=== PATIENT | female | born 1990 | race Caucasian/White ===

== ENCOUNTER 2017-08-15 20:25 | Inpatient (IN) ==
[2017-08-15] MEDS ORDERED: IOPAMIDOL 100 ML BOTTLE IV ONE (20:26)
[2017-08-15] MEDS: HYDROmorphone 2 MG/ML SYRINGE IV PRN (21:02)
[2017-08-15] MEDS ORDERED: HYDROmorphone 2 MG/ML SYRINGE IV SCH (21:30)
[2017-08-15 21:35] LABS: Basophils # (Auto) 0.1 K/mcL (0.0-0.3); Basophils % (Auto) 0.5 % (0.0-2.0); Eosinophils # (Auto) 0.2 K/mcL (0.0-0.7); Eosinophils % (Auto) 1.3 % (0.0-7.0); Granulocytes % (Auto) 79.4 % (38.0-78.0); Lymphocytes % (Auto) 13.6 % (15.5-49.0); Mean Cell Volume 94.8 fL (80.0-100.0); Mean Corpuscular HGB Conc 35.2 g/dL (31.0-36.0); Mean Corpuscular Hemoglobin 33.4 pg (26.0-34.0); Monocytes # (Auto) 0.7 K/mcL (0.1-0.9); Monocytes % (Auto) 5.2 % (1.0-12.0); Platelet Count 220 K/mcL (140-440); RBC 4.41 M/mcL (4.00-5.20); Red Cell Distribution Width 13.2 % (11.5-14.5)
[2017-08-15] MEDS ORDERED: cefOXitin 2 GM in DEXTROSE 5% IN WATER 50 ML IV ONE (21:52)
[2017-08-15 21:53] LABS: ALT/SGPT 45 U/l (0-40); Albumin 4.2 gm/dL (3.2-5.2); Albumin/Globulin Ratio 1.3 (1.0-2.3); Alkaline Phosphatase 66 U/L (39-117); Blood Urea Nitrogen 9 mg/dl (6-20)
[2017-08-15] MEDS ORDERED: 0.9 % SODIUM CHLORIDE 1,000 ML IV ONE (21:57)
[2017-08-15] MEDS ORDERED: HYDROmorphone 2 MG/ML SYRINGE ONE (22:45)
[2017-08-15] MEDS ORDERED: HYDROmorphone 2 MG/ML SYRINGE IV ONE (22:46)
[2017-08-15] MEDS ORDERED: ACETAMINOPHEN 325 MG TABLET PO ONE ×2 (22:50)
[2017-08-15] MEDS ORDERED: PIPERACILLIN SODIUM/TAZOBACTAM 3.375 GM in DEXTROSE 5% IN WATER 50 ML IV ONE (23:15)
[2017-08-15] MEDS ORDERED: VANCOMYCIN 1,500 MG in 0.9 % SODIUM CHLORIDE 500 ML IV ONE (23:15)
[2017-08-15] MEDS ORDERED: KETOROLAC 30 MG/ML VIAL IV ONE (23:15)
[2017-08-15] MEDS ORDERED: DEXAMETHASONE 10 MG/ML VIAL ONE (23:33)
[2017-08-15] MEDS ORDERED: VANCOMYCIN 500 MG VIAL ONE (23:33)
[2017-08-15] MEDS ORDERED: PIPERACILLIN SODIUM/TAZOBACTAM 3.375 GM VIAL IV ONE (23:33)
[2017-08-15] MEDS ORDERED: VANCOMYCIN 1 GM VIAL ONE (23:34)
[2017-08-16] MEDS ORDERED: KETOROLAC 15 MG/ML VIAL ONE ×2 (00:42→05:54)
[2017-08-16] MEDS ORDERED: ONDANSETRON 4 MG/2 ML VIAL IV PRN (00:48)
[2017-08-16] MEDS ORDERED: VANCOMYCIN PER PHARMACY IV SCH (00:48)
[2017-08-16] MEDS ORDERED: KETOROLAC 30 MG/ML VIAL IV PRN (00:48)
[2017-08-16] MEDS ORDERED: ACETAMINOPHEN 325 MG TABLET PO PRN (00:48)
[2017-08-16] MEDS ORDERED: HYDROmorphone 2 MG/ML SYRINGE IV PRN (00:48)
[2017-08-16] MEDS ORDERED: NALOXONE HCL 0.4 MG/ML VIAL IV PRN (00:48)
[2017-08-16] MEDS ORDERED: NICOTINE 21 MG PATCH ONE (00:57)
[2017-08-16] MEDS ORDERED: CITALOPRAM 20 MG TABLET PO ONE (01:30)
[2017-08-16] MEDS ORDERED: DIVALPROEX SODIUM 250 MG TAB.ER.24H PO ONE (01:30)
[2017-08-16] MEDS ORDERED: clonazePAM 1 MG TABLET ONE (01:35)
[2017-08-16] MEDS ORDERED: HYDROmorphone 2 MG/ML SYRINGE ONE ×2 (03:12→03:17)
[2017-08-16] MEDS ORDERED: PIPERACILLIN SODIUM/TAZOBACTAM 3.375 GM VIAL IV ONE (05:57)
[2017-08-16] MEDS: HYDROmorphone 2 MG/ML SYRINGE IV PRN (06:52)
[2017-08-16] MEDS ORDERED: DEXAMETHASONE 10 MG/ML VIAL ONE (07:37)
[2017-08-16] MEDS ORDERED: HYDROcodone/APAP 10/325MG TABLET PO ONE (07:37)
[2017-08-16] MEDS ORDERED: ARIPIPRAZOLE 5 MG TABLET PO ONE (08:00)
--- NOTE | 2017-08-16 08:11 | Internal Med History&Physical ---
Medical - H&P: HPI Patient information: Note initiated : 08/16/17 at 12:09 am Service Date, if different from initiated Date: [] Patient: Sri Bang 27 y/o F admitted on for dental. Chief Complaint: [] History of present illness: Ms. Bang is a 27 year old Female presented to the ER today with complaints of pain in the left jaw associated with swelling. The patient has a chr bad (broken) tooth in the left lower jaw which bothers her intermittently, this time around the pain started 2 days ago in the left lower jaw and progressively got worse. This AM the patient had some swelling on the left side of the face and therefore presented to the ER, she was given oral antibiotics. The swelling got worse and she came back in again this PM. The patient notes that the pain is in the left lower jaw, throbbing, severe, constant, worse with eating and movement, better with pain meds, non radiating. Associated with swelling in the left side of the face. Subjective sesnation of fever and chills and malaise. She admits to having some nausea but no vomiting. No other issues. In the ER her wbc was elevated, CT of the neck done showing. cellulitis of the left face and neck, likely odontogenic in origin. She was given cefoxitin and admitted to the hospital for further management. All systems: reviewed and no additional remarkable complaints except as stated ( as per HPI) Medical - H&P: PMH Medical history: Medical History Pharyngitis (Acute) Back pain (Acute) Lumbar radiculopathy (Acute) Ovarian cyst (Acute) Hepatomegaly (Acute) Ovarian cyst (Acute) Abscess of skin or subcutaneous tissue (Acute) Abscess of axilla, left (Acute) Cigarette smoker (Acute) Morbid obesity (Acute) Dental abscess (Acute) epilespsy anxiety depressin ptsd night tremors Surgical history: s/o cholecystectomy Pertinent family history: Father DM, heart issues mother HTN Social history: lives with smoker, 1ppd, x 15 yrs denies etoh, thc or other drugs. Medical - H&P: Meds Home Medications Medication Instructions Recorded Confirmed Type Citalopram [Celexa] 20 mg PO HS 06/13/15 08/15/17 History clonazePAM [Clonazepam] 1 mg PO TID 06/13/15 08/15/17 History Aripiprazole [Abilify] 20 mg PO DAILY 04/28/17 08/15/17 History Divalproex Sodium [Depakote ER] 1,000 mg PO HS 04/28/17 08/15/17 History Prazosin [Minipress] 2 mg PO HS 04/28/17 08/15/17 History HYDROcodone/ACETAMINOPHEN 2 each PO Q4-6HP PRN 08/05/17 08/15/17 History [Hydrocodon-Acetaminophn 10-325] Clindamycin HCl [Cleocin] 300 mg PO TID #30 cap 08/15/17 Rx Allergies Allergy/AdvReac Type Severity Reaction Status Date / Time morphine [MORPHINE] Allergy Intermediate HIVES, Verified 08/15/17 07:54 SWELLING codeine [CODEINE] Allergy Mild HIVES Verified 08/15/17 07:54 lamotrigine [From LAMICTAL] Allergy Unknown STOP Verified 08/15/17 07:54 BREATHING Medical - H&P: Exam - Constitutional Vitals: Temp Pulse Resp BP Pulse Ox 98.1 F 118 H 19 118/75 96 08/15/17 20:25 08/15/17 20:25 08/15/17 20:25 08/15/17 20:25 08/15/17 20:25 Exam: GENERAL: The patient is a well-developed, well-nourished in no apparent distress. Is alert and oriented x3. morbidly obese VITAL SIGNS: Reviewed and as noted elsewhere. HEENT: Head is normocephalic and atraumatic. Extraocular muscles are intact. Pupils are equal, round, and reactive to light. Nares appeared normal. Mouth: Left jaw swollen 1st molar broken, pus noted at the base of the tooth. some fluctuation to deep palpation. left side of the face as well as the neck swollen. No stridor noted. tongue normal, oropharanyx normal. NECK: Normal to inspection, Supple, No lymphadenopathy or thyromegaly. LUNGS: Air entry equal on both sides, no wheezing, crackles or rhonchi noted. No accessory muscles of respiration HEART: Regular rate and rhythm normal, S1 and S2 heard, no Gallop, S3 or Rub Noted, No Gross murmur heard. ABDOMEN: Soft, nontender, and nondistended. Positive bowel sounds. No hepatosplenomegaly was noted. EXTREMITIES: No cyanosis, clubbing, rash, lesions or edema. NEUROLOGIC: Cranial nerves II through XII are grossly intact. Motor and Sensory System Grossly Intact PSYCHIATRIC: Normal affect, Normal Mood. Appropriate Behavior. SKIN: No ulceration or wounds noted, No jaundice, No rash noted. Medical - H&P: Reslt - Labs CBC & Chem 7: 08/15/17 20:52 08/15/17 20:52 Labs: Short CBC 08/15/17 Range/Units 20:52 WBC 14.4 H (4.5-11.0) K/mcL Hgb 14.7 (12.0-15.0) g/dL Hct 41.8 (36.0-48.0) % Plt Count 220 (140-440) K/mcL BMP 08/15/17 20:52 Sodium 138 Potassium 4.2 Chloride 98 Carbon Dioxide 26 BUN 9 Creatinine 0.7 Glucose 181 H Calcium 9.3 Liver Function 08/15/17 Range/Units 20:52 Total Bilirubin 0.3 (0.0-1.0) mg/dL AST 46 H (0-37) U/l ALT 45 H (0-40) U/l Alkaline Phosphatase 66 (39-117) U/L Albumin 4.2 (3.2-5.2) gm/dL Medical - H&P: A/P - Narrative A/P Narrative: A/P Neck Cellutlitis Sepsis Periodontal Abscess Morbid obesity Depression Anxiety Chr pain PTSD Seizure disorder tobacco abuse. Plan Admit to tele, monitor resp status closely IV dexa 10mg x 1, started on vanco and zosyn, (unasyn not available) IVF fluids d5, 0.45ns @75 IV ketorolac and IV dilaudid for pain management. IVF, NPO OMS consult in AM to see if this abscess needs to be drained. seizure precautions resume home meds once verified check a1c given elevated glucose smoking cessation education and nicotine replacement dvt enoxaparin Full code NPO
--- NOTE | 2017-08-16 08:11 | Emergency Department Note ---
Dental HPI - General Chief complaint: Dental/Oral Stated complaint: dental Time Seen by Provider: 08/15/17 20:30 Source: patient Mode of arrival: ambulatory Limitations: no limitations - History of Present Illness HPI Narrative: The patient is a 27-year-old female who presents today for reevaluation of her left jaw pain and dental infection. She was seen here earlier today by Dr. rosas who prescribed clindamycin. The patient reports that she took 2 doses thus far and was planning on taking the third dose when she went to bed tonight. However she took a nap this afternoon,woke up and noted incredible worsening of her left sided mouth and jaw swelling. Feels like it's extending into the left neck now. Also feels like she is having some difficulty breathing. Denies any headache at home today. Location: Tooth # (19) Onset (ago): day(s) Duration: constant Severity scale (1-10): 10 - Related Data Home Medications Medication Instructions Recorded Confirmed Citalopram [Celexa] 40 mg PO HS 06/13/15 08/16/17 clonazePAM [Clonazepam] 1 mg PO TID 06/13/15 08/16/17 Aripiprazole [Abilify] 10 mg PO QHS 04/28/17 08/16/17 Divalproex Sodium [Depakote ER] 1,000 mg PO HS 04/28/17 08/16/17 Prazosin [Minipress] 1 mg PO HS 04/28/17 08/16/17 HYDROcodone/ACETAMINOPHEN 2 each PO Q4-6HP PRN 08/05/17 08/16/17 [Hydrocodon-Acetaminophn 10-325] Ondansetron HCl [Zofran] 4 mg PO Q4-6H PRN 08/16/17 08/16/17 Previous Rx's Medication Instructions Recorded Clindamycin HCl [Cleocin] 300 mg PO TID #30 cap 08/15/17 Allergies Allergy/AdvReac Type Severity Reaction Status Date / Time morphine [MORPHINE] Allergy Intermediate HIVES, Verified 08/15/17 07:54 SWELLING codeine [CODEINE] Allergy Mild HIVES Verified 08/15/17 07:54 lamotrigine [From LAMICTAL] Allergy Unknown STOP Verified 08/15/17 07:54 BREATHING Review of Systems All systems ED: reviewed and negative except as stated. Past Medical History - Past Medical History Attestation: Yes: The following information was validated with the patient. Medical history: Reports: arthritis, asthma, seizures, other (chronic low back pain, chronic narcotics). Denies: diabetes Surgical history ED: Reports: non-contributory Psychiatric history: Reports: anxiety, depression, PTSD ART THERAPY SPECIALIST history: Reports: other (ovarian cysts) - Social History smoking status: Current every day smoker Alcohol use: Reports: None (denies) Drug use: Reports: none (denies) Physical Exam - General Limitations: no limitations General appearance: alert, in distress (appears to be uncomfortable) - Head Head exam: other (visible swelling to the left lower jaw and neck region - distortion pushes her mouth to the right, pain on palpation of the left submandibular lymph nodes but no warmth to the touch) - Eye Eye exam: Present: normal appearance - Chest Chest inspection: Present: normal inspection, symmetric chest wall rise - Respiratory Respiratory exam: Present: normal lung sounds bilaterally - Cardiovascular Cardiovascular exam: Present: regular rate, normal rhythm - Abdominal Exam Abdominal exam: Present: soft, normal bowel sounds - Neurological Exam Neurological exam: Present: alert, oriented X3 - Psychiatric Psychiatric exam: Present: normal affect, normal mood - Skin Skin exam: Present: warm, dry Course Course Narrative: This is a patient who earlier today had mild swelling of her left lower jaw. It has rapidly progressed despite outpatient antibiotic therapy. We will draw blood cultures, blood work, CT soft tissue neck and pain IV fluids with IV antibiotics. Question of abscess versus cellulitis. - Reevaluation(s) Reevaluation #1: CT returned showing facial cellulitis without sign of abscess. IV cefoxatin was started for anaerobic coverage. Blood work returned showing a white blood cell count of 14.2. Called hospitalist who graciously agreed to admit the patient for sepsis with facial cellulitis. Vital Signs Temperature 98.1 F 08/15/17 20:25 Pulse Rate 118 H 08/15/17 20:25 Respiratory Rate 19 08/15/17 20:25 Blood Pressure 118/75 08/15/17 20:25 Pulse Oximetry (%) 96 08/15/17 20:25 Temperature 98.0 F 08/16/17 01:07 Pulse Rate 110 H 08/16/17 01:07 Respiratory Rate 24 H 08/16/17 01:07 Blood Pressure 118/75 08/16/17 01:07 Pulse Oximetry (%) 96 08/16/17 02:33 Dental/Oral - MDM Narrative Medical decision making narrative: Acute worsening of left sided dental infection progressing to left neck cellulitis causing sepsis. Patient will be admitted to the hospital service and be treated with IV antibiotics, pain control and dexamethasone. - Lab Data Lab results reviewed: Yes I reviewed the patient's lab results. Result diagrams: 08/15/17 20:52 08/15/17 20:52 Lab Results 08/15/17 08/15/17 08/15/17 Range/Units 20:52 20:52 20:52 WBC 14.4 H (4.5-11.0) K/mcL RBC 4.41 (4.00-5.20) M/mcL Hgb 14.7 (12.0-15.0) g/dL Hct 41.8 (36.0-48.0) % MCV 94.8 (80.0-100.0) fL MCH 33.4 (26.0-34.0) pg MCHC 35.2 (31.0-36.0) g/dL RDW 13.2 (11.5-14.5) % Plt Count 220 (140-440) K/mcL MPV 9.5 (7.4-10.4) fL Gran % 79.4 H (38.0-78.0) % Lymph % (Auto) 13.6 L (15.5-49.0) % Elmore % (Auto) 5.2 (1.0-12.0) % Eos % (Auto) 1.3 (0.0-7.0) % Baso % (Auto) 0.5 (0.0-2.0) % Gran # 11.4 H (1.8-8.0) K/mcL Lymph # (Auto) 2.0 (1.5-4.8) K/mcL Elmore # (Auto) 0.7 (0.1-0.9) K/mcL Eos # (Auto) 0.2 (0.0-0.7) K/mcL Baso # (Auto) 0.1 (0.0-0.3) K/mcL VBG Lactic Acid 1.4 (0.5-2.2) mmol/L Sodium 138 (133-145) mmol/L Potassium 4.2 (3.3-5.1) mmol/L Chloride 98 (96-108) mmol/L Carbon Dioxide 26 (22-30) mmol/L Anion Gap 14.0 (8-16) BUN 9 (6-20) mg/dl Creatinine 0.7 (0.6-1.1) mg/dl GFR Calculation 119 Glucose 181 H (70-105) mg/dL Calcium 9.3 (8.6-10.4) mg/dl Total Bilirubin 0.3 (0.0-1.0) mg/dL AST 46 H (0-37) U/l ALT 45 H (0-40) U/l Alkaline Phosphatase 66 (39-117) U/L Total Protein 7.5 (5.9-8.4) gm/dL Albumin 4.2 (3.2-5.2) gm/dL Globulin 3.3 (2.2-3.7) gm/dL Albumin/Globulin Ratio 1.3 (1.0-2.3) Disposition Pt seen by SEXTON HELPER/PA only: No Clinical Impression: Cellulitis Disposition: Xfer As Inpt ([facility]) Condition: Good
[2017-08-16] MEDS: DEXTROSE 5%-1/2NS 1,000 ML IV SCH ×3 (09:15→22:11)
[2017-08-16] MEDS: NICOTINE 21 MG PATCH TOPICAL SCH ×2 (09:15→10:14)
[2017-08-16] MEDS: clonazePAM 1 MG TABLET PO SCH ×3 (09:16→19:16)
[2017-08-16] MEDS: ENOXAPARIN 40 MG/0.4 ML SYRINGE SQ SCH (09:20)
[2017-08-16 09:30] LABS: ALT/SGPT 41 U/l (0-40); Albumin 4.1 gm/dL (3.2-5.2); Albumin/Globulin Ratio 1.3 (1.0-2.3); Alkaline Phosphatase 70 U/L (39-117); Bilirubin,Direct < 0.2 mg/dL (0.0-0.3); Blood Urea Nitrogen 8 mg/dl (6-20); Gamma Glutamyl Transpeptidase 43 U/L (5-36); Magnesium 2.1 mg/dL (1.6-2.5); Mean Cell Volume 97.7 fL (80.0-100.0); Mean Corpuscular HGB Conc 34.5 g/dL (31.0-36.0); Mean Corpuscular Hemoglobin 33.7 pg (26.0-34.0); Platelet Count 185 K/mcL (140-440); RBC 4.16 M/mcL (4.00-5.20); Red Cell Distribution Width 14.3 % (11.5-14.5); Uric Acid 5.8 mg/dL (2.5-8.0)
[2017-08-16] MEDS: VANCOMYCIN 1,500 MG in 0.9 % SODIUM CHLORIDE 500 ML IV SCH ×2 (09:30→21:24)
[2017-08-16] MEDS: CITALOPRAM 20 MG TABLET PO SCH ×2 (10:12→19:16)
--- NOTE | 2017-08-16 10:39 | Internal Med Progress Note ---
Medical - PN: Subj Patient information: Note initiated : 08/16/17 at 10:36 am Service Date, if different from initiated Date: [] Patient: Sri Bang 27 y/o F admitted on 08/15/17 for dental. Chief Complaint: [] Interval history: Ms. Bang is a 27 year old Female presented to the ER today with complaints of pain in the left jaw associated with swelling. The patient has a chr bad (broken) tooth in the left lower jaw which bothers her intermittently, this time around the pain started 2 days ago in the left lower jaw and progressively got worse. This AM the patient had some swelling on the left side of the face and therefore presented to the ER, she was given oral antibiotics. The swelling got worse and she came back in again this PM. The patient notes that the pain is in the left lower jaw, throbbing, severe, constant, worse with eating and movement, better with pain meds, non radiating. Associated with swelling in the left side of the face. Subjective sensation of fever and chills and malaise. She admits to having some nausea but no vomiting. No other issues. In the ER her wbc was elevated, CT of the neck done showing. cellulitis of the left face and neck, likely odontogenic in origin. She was given cefoxitin and admitted to the hospital for further management. July 17 Patient seen examined, still in pain, patient feeling hungry Due to computer updates and glitches in the system, the patient missed a few home meds last night, hopefully will be resolved today She remains afebrile, and wbc is trending down swelling on the left side of the jaw is stable at this point. I called the local OMS surgeons who are not available for consult. Called Dr jeff arshad dentist who can only see the patient in the clinic but not in the hospital. Presently I will allow the sepsis syndrome to resolve before allowing pt to be sent to the clinic. Pertinent ROS: Denies headache, dizziness Denies chest pain, palpitations Denies cough or shortness of breath Denies abdominal pain, nausea or vomiting. left jaw pain present. - Constitutional Vitals: Vital Signs Temp Pulse Resp BP Pulse Ox 99.9 F H 95 H 22 127/75 92 08/16/17 07:57 08/16/17 04:48 08/16/17 07:57 08/16/17 07:57 08/16/17 07:57 Period Temp Pulse Resp BP Sys/Rico Pulse Ox Last 24 Hr 98.0 F-99.9 F 95-118 19-24 111-139/69-80 91-97 Intake and Output 08/15/17 08/16/17 08/16/17 21:59 05:59 13:59 Intake Total 218 / 218 Output Total 100 / 100 Balance 118 / 118 Weight 280 lb 289 lb Intake & Output: Intake & Output 08/15/17 08/16/17 08/16/17 21:59 05:59 13:59 Intake Total 218 / 218 Output Total 100 / 100 Balance 118 / 118 Weight 280 lb 289 lb Intake: IV 218 / 218 Sodium Chloride 0.9% 1,000 ml @ 168 / 168 Wide Open IV BOLUS ONE Rx#: [id number] Mefoxin 2 gm In Dextrose 5% in 50 / 50 Water 50 ml @ 100 mls/hr IV ONCE ONE Rx#:[id number] Oral 0 / 0 Output: Void Amount 100 / 100 Exam: Constitutional; Afebrile, cooperative, alert, not in distress. Eyes- No icterus, , No periorbital swelling Ears- Ext ear normal, hearing normal to conversation. Neck- Midline trachea, supple, no stridor. Respiratory system: Air Entry equal on both sides, No crackles or wheezing, no rhonchi. CVS- Rate rhythm regular, S1,S2 heard, no gallop, no rub. Abdomen- Soft nontender abdomen, no organomegaly, no tenderness, no guarding or rigidity, INLETTER- AOOx3, moving all extremities, no gross focal deficit noted. Left jaw: still swollen, and tender, no worsening. oral mucosa ok, no e/o impending resp compromise. Medical - PN: Obj Da - Labs CBC & Chem 7: 08/16/17 04:10 08/16/17 04:10 Labs: Abnormal Lab Results 08/16/17 08/16/17 08/15/17 04:10 04:10 20:52 WBC 12.1 H Gran % Lymph % (Auto) Gran # Glucose 196 H 181 H Phosphorus 2.5 L GGT 43 H AST 46 H ALT 41 H 45 H Triglycerides 220 H 08/15/17 20:52 WBC 14.4 H Gran % 79.4 H Lymph % (Auto) 13.6 L Gran # 11.4 H Glucose Phosphorus GGT AST ALT Triglycerides Meds: Medications Hydrocodone Bitart/Acetaminophen (Gaffney 10/325mg) 2 tab PO Q4-6HP PRN PRN Reason: Pain Citalopram Hydrobromide (Celexa) 40 mg PO HS [facility] Last Admin: 08/16/17 10:12 Dose: Not Given Clonazepam (Klonopin) 1 mg PO TID [facility] Last Admin: 08/16/17 09:16 Dose: 1 mg Dexamethasone (Decadron) 10 mg IV ONCE ONE Stop: 08/16/17 23:16 Divalproex Sodium (Depakote Er) 1,000 mg PO HS [facility] Enoxaparin Sodium (Lovenox) 40 mg SQ DAILY [facility] Last Admin: 08/16/17 09:20 Dose: 40 mg Hydromorphone HCl (Dilaudid) 1 mg IV Q2HP PRN PRN Reason: Pain, severe Dextrose/Sodium Chloride (Dextrose 5%-1/2ns Iv Solution) 1,000 mls @ 75 mls/hr IV .[id number] [facility] Stop: 08/17/17 16:47 Last Admin: 08/16/17 09:15 Dose: 75 mls/hr Piperacillin Sod/Tazobactam (Sod 3.375 gm/ Sodium Chloride) 50 mls @ 100 mls/ hr IV Q6H [facility] Vancomycin HCl 1,500 mg/ (Sodium Chloride) 500 mls @ 333.3 mls/hr IV Q12H [facility] Last Admin: 08/16/17 09:30 Dose: 333.3 mls/hr Ketorolac Tromethamine (Toradol) 30 mg IV Q6 [facility] Stop: 08/17/17 06:01 Naloxone HCl (Narcan) 0.1 mg IV Q2MIN PRN PRN Reason: Opiate Reversal Nicotine (Nicoderm) 21 mg TOPICAL DAILY@1000 [facility] Last Admin: 08/16/17 10:14 Dose: Not Given Ondansetron HCl (Zofran) 4 mg IV Q4HP PRN PRN Reason: Nausea And Vomiting Prazosin HCl (Minipress) 1 mg PO HS [facility] Vancomycin HCl (Vancomycin Per Pharmacy) 1 order IV UD [facility] Medical - PN: A/P - Time Spent With Patient Total time spent is greater than 50% in coordination of care (as documented) at patient's floor/unit and/or counseling patient: - Narrative A/P Narrative: A/P Neck Cellutlitis Sepsis Periodontal Abscess Morbid obesity Depression Anxiety Chr pain PTSD Seizure disorder tobacco abuse. Plan sepsis improving, wbc trending down. Pain still present, on IV antibiotics unable to get OMS eval or dentist eval at this time, Discussed case with OMS surgery on phone, advised to treat the infection and will need effective drainage once stable continue IV Fluids continue home meds smoking cessation education and nicotine replacement dvt enoxaparin Full code Regular diet as tolerated.
[2017-08-16 10:41] LABS: Estimated Average Glucose(eAG) 131 mg/dL; Hemoglobin A1C 6.2 % HGB (4.0-6.0)
[2017-08-16 10:53] LABS: Band Neutrophils % 3 % (0-10); Lymphocytes % 13 % (15-49); Monocytes % (Manual) 1 % (1-12); Platelet Estimate NORMAL (NORMAL); RBC Morphology NORMAL (NORMAL); Segmented Neutrophils % 82 % (38-78)
--- NOTE | 2017-08-16 11:03 | Cat Scan Report ---
CLINICAL INFORMATION: Left mandibular dental abscess facial swelling and pain COMPARISON: None. TECHNIQUE: 80 cc of Isovue-300 were injected intravenously and 25 seconds later, 2.5 mm helical slices were obtained from the inferior orbit through the supraclavicular region. Following reconstruction, 2.5 mm sagittal and coronal reformations were processed. The exam was reviewed at bone and soft tissue windows FINDINGS: There is a 7 mm cavitation within the central second left mandibular molar with moderate radiolucency about the root about a dentigerous abscess. There also is a small dentigerous abscess about the tip of the adjacent left mandibular first molar. The right mandibular first premolar is absent, but there is a dentigerous abscess about the right mandibular second premolar root. There is moderate cellulitis in the buccal fascia over the left mandibular ramus adjacent to the dentigerous abscess. It extends into the right platysma soft tissues. No evidence of discrete soft tissue abscess. There are 4-5 mildly enlarged reactive lymph nodes in the left perimandibular region ranging up to 14 mm. The submandibular and parotid glands are unremarkable. The carotid and jugular vasculature systems are normal. Thyroid is grossly normal. The true and false vocal cords, epiglottis and aryepiglottic folds, tongue base, and prevertebral soft tissues are normal. The cervical spine is normal in curvature and alignment without osseous abnormality. Lung apices are normal. IMPRESSION: 1. 7 mm abscess cavitation in the second left mandibular molar with a 9 mm dentigerous abscess about the root. The abscess extends through the lateral cortex of the mandibular ramus into the left buccal fascia which demonstrates moderate cellulitis extending the platysma. There are 4-5 reactive lymph nodes in the perimandibular region ranging up to 11 mm. 2. Small dentigerous abscesses adjacent to the left mandibular first molar and also the right mandibular second premolar Interpreted and Authenticated by: Branden Gallegos 08/16/17
[2017-08-16] MEDS: HYDROcodone/APAP 10/325MG TABLET PO PRN ×3 (12:09→20:47)
[2017-08-16] MEDS: KETOROLAC 30 MG/ML VIAL IV SCH ×2 (12:09→17:45)
[2017-08-16] MEDS: PIPERACILLIN SODIUM/TAZOBACTAM 3.375 GM in 0.9 % SODIUM CHLORIDE 50 ML IV SCH ×2 (12:10→17:45)
[2017-08-16] MEDS ORDERED: PRAZOSIN 1 MG CAPSULE PO SCH (21:00)
[2017-08-16] MEDS ORDERED: DIVALPROEX SODIUM 250 MG TAB.ER.24H PO SCH (21:00)
[2017-08-16] MEDS ORDERED: ARIPIPRAZOLE 5 MG TABLET PO SCH (21:00)
[2017-08-16] MEDS ORDERED: DEXAMETHASONE 10 MG/ML VIAL IV ONE (23:15)
[2017-08-17] MEDS: KETOROLAC 30 MG/ML VIAL IV SCH ×2 (00:03→05:12)
[2017-08-17] MEDS: PIPERACILLIN SODIUM/TAZOBACTAM 3.375 GM in 0.9 % SODIUM CHLORIDE 50 ML IV SCH ×5 (00:03→23:05)
[2017-08-17] MEDS: DEXTROSE 5%-1/2NS 1,000 ML IV SCH ×3 (05:03→16:41)
[2017-08-17 06:08] LABS: Basophils # (Auto) 0 K/mcL (0.0-0.3); Basophils % (Auto) 0 % (0.0-2.0); Eosinophils # (Auto) 0.1 K/mcL (0.0-0.7); Eosinophils % (Auto) 0.6 % (0.0-7.0); Granulocytes % (Auto) 86.9 % (38.0-78.0); Lymphocytes # (Auto) 1.1 K/mcL (1.5-4.8); Lymphocytes % (Auto) 7.2 % (15.5-49.0); Mean Cell Volume 97.8 fL (80.0-100.0); Mean Corpuscular HGB Conc 34.8 g/dL (31.0-36.0); Monocytes # (Auto) 0.8 K/mcL (0.1-0.9); Monocytes % (Auto) 5.3 % (1.0-12.0); Platelet Count 187 K/mcL (140-440); RBC 3.82 M/mcL (4.00-5.20); Red Cell Distribution Width 14.3 % (11.5-14.5)
[2017-08-17 06:25] LABS: ALT/SGPT 32 U/l (0-40); Albumin 3.6 gm/dL (3.2-5.2); Albumin/Globulin Ratio 1.2 (1.0-2.3); Alkaline Phosphatase 50 U/L (39-117); Bilirubin,Direct < 0.2 mg/dL (0.0-0.3); Blood Urea Nitrogen 12 mg/dl (6-20); Gamma Glutamyl Transpeptidase 38 U/L (5-36); Magnesium 2.2 mg/dL (1.6-2.5); Uric Acid 5.1 mg/dL (2.5-8.0)
[2017-08-17] MEDS: HYDROcodone/APAP 10/325MG TABLET PO PRN ×3 (07:27→20:41)
[2017-08-17] MEDS: ENOXAPARIN 40 MG/0.4 ML SYRINGE SQ SCH (09:14)
[2017-08-17] MEDS: clonazePAM 1 MG TABLET PO SCH ×3 (09:14→20:08)
[2017-08-17] MEDS: NICOTINE 21 MG PATCH TOPICAL SCH ×2 (09:16→09:43)
[2017-08-17] MEDS ORDERED: NALOXONE HCL 0.4 MG/ML VIAL IV PRN (09:35)
[2017-08-17] MEDS ORDERED: VANCOMYCIN PER PHARMACY IV SCH (09:35)
[2017-08-17] MEDS ORDERED: ONDANSETRON 4 MG/2 ML VIAL IV PRN (09:35)
[2017-08-17] MEDS: VANCOMYCIN 2,000 MG in 0.9 % SODIUM CHLORIDE 500 ML IV SCH ×2 (10:28→20:42)
--- NOTE | 2017-08-17 11:02 | Internal Med Progress Note ---
Medical - PN: Subj Patient information: Note initiated : 08/17/17 at 11:00 am Service Date, if different from initiated Date: [] Patient: Sri Bang 27 y/o F admitted on 08/15/17 for dental. Chief Complaint: [] Interval history: Ms. Bang is a 27 year old Female presented to the ER today with complaints of pain in the left jaw associated with swelling. The patient has a chr bad (broken) tooth in the left lower jaw which bothers her intermittently, this time around the pain started 2 days ago in the left lower jaw and progressively got worse. This AM the patient had some swelling on the left side of the face and therefore presented to the ER, she was given oral antibiotics. The swelling got worse and she came back in again this PM. The patient notes that the pain is in the left lower jaw, throbbing, severe, constant, worse with eating and movement, better with pain meds, non radiating. Associated with swelling in the left side of the face. Subjective sensation of fever and chills and malaise. She admits to having some nausea but no vomiting. No other issues. In the ER her wbc was elevated, CT of the neck done showing. cellulitis of the left face and neck, likely odontogenic in origin. She was given cefoxitin and admitted to the hospital for further management. July 17 Patient seen examined, still in pain, patient feeling hungry Due to computer updates and glitches in the system, the patient missed a few home meds last night, hopefully will be resolved today She remains afebrile, and wbc is trending down swelling on the left side of the jaw is stable at this point. I called the local OMS surgeons who are not available for consult. Called Dr jeff arshad dentist who can only see the patient in the clinic but not in the hospital. Presently I will allow the sepsis syndrome to resolve before allowing pt to be sent to the clinic. July 18 Patient seen examined, still has pain, but better valdes yesterday, no acute overnight events. Labs reviewed, wbc up to 15K, but procalcitonin is neg, Swelling much better today Given we will not be able to get he dental abscess taken care of today being friday will continue with IV ABX x 1 more day. Anticipate D/c in AM to OMS clinic or dental clinic to help with dental extraction. Pertinent ROS: Denies headache, dizziness Denies chest pain, palpitations Denies cough or shortness of breath Denies abdominal pain, some nausea present but no vomiting. - Constitutional Vitals: Vital Signs Temp Pulse Resp BP Pulse Ox 97.8 F 96 H 28 H 120/70 94 08/17/17 07:22 08/17/17 09:32 08/17/17 09:32 08/17/17 07:22 08/17/17 07:22 Period Temp Pulse Resp BP Sys/Rico Pulse Ox Last 24 Hr 96.9 F-98.8 F 87-103 16-28 110-126/62-80 90-94 Intake and Output 08/16/17 08/17/17 08/17/17 21:59 05:59 13:59 Intake Total 850 / 850 1380 / 1380 220 / 220 Output Total 1000 / 1000 350 / 350 Balance 850 / 850 380 / 380 -130 / -130 Weight 299 lb 299 lb Patient Weight 08/18/17 05:59 Weight 299 lb Intake & Output: Intake & Output 08/16/17 08/17/17 08/17/17 21:59 05:59 13:59 Intake Total 850 / 850 1380 / 1380 220 / 220 Output Total 1000 / 1000 350 / 350 Balance 850 / 850 380 / 380 -130 / -130 Weight 299 lb 299 lb Intake: IV 50 / 50 1020 / 1020 Dextrose 5%-1/2Ns IV Solution 1 970 / 970 ,000 ml @ 75 mls/hr IV .[id number] [facility] Rx#:[id number] Zosyn 3.375 gm In Sodium 50 / 50 50 / 50 Chloride 0.9% 50 ml @ 100 mls/ hr IV Q6H [facility] Rx#:[id number] Oral 800 / 800 360 / 360 220 / 220 Output: Void Amount 1000 / 1000 350 / 350 Other: Meal Dinner Breakfast Percent of Meal Consumed 100% 75% Feeding Ability Independent Independent # Voids 1 1 # Bowel Movements 1 Exam: Constitutional; Afebrile, cooperative, alert, not in distress. morbidly obese. Eyes- No icterus, , No periorbital swelling Ears- Ext ear normal, hearing normal to conversation. Neck- Midline trachea, supple Respiratory system: Air Entry equal on both sides, No crackles or wheezing, no rhonchi. CVS- Rate rhythm regular, S1,S2 heard, no gallop, no rub. Abdomen- Soft nontender abdomen, no organomegaly, no tenderness, no guarding or rigidity, SMOKING [employer] PACKER HAND- AOOx3, moving all extremities, no gross focal deficit noted. Oral mucosa, neck: swelling much improved, left molar space better, no active pus drainage noted. no stridor Medical - PN: Obj Da - Labs CBC & Chem 7: 08/17/17 04:20 08/17/17 04:20 Labs: Abnormal Lab Results 08/17/17 08/17/17 08/16/17 04:20 04:20 04:10 WBC 15.0 H RBC 3.82 L Gran % 86.9 H Lymph % (Auto) 7.2 L Gran # 13.0 H Lymph # (Auto) 1.1 L Seg Neutrophils % Lymphocytes % Glucose 187 H 196 H Hemoglobin A1c 6.2 H Phosphorus 2.6 L 2.5 L GGT 38 H 43 H AST ALT 41 H Lactate Dehydrogenase 91 L Triglycerides 223 H 220 H 08/16/17 08/15/17 08/15/17 04:10 20:52 20:52 WBC 12.1 H 14.4 H RBC Gran % 79.4 H Lymph % (Auto) 13.6 L Gran # 11.4 H Lymph # (Auto) Seg Neutrophils % 82 H Lymphocytes % 13 L Glucose 181 H Hemoglobin A1c Phosphorus GGT AST 46 H ALT 45 H Lactate Dehydrogenase Triglycerides Meds: Medications Hydrocodone Bitart/Acetaminophen ([place] 10/325mg) 2 tab PO Q4-6HP PRN PRN Reason: Pain Citalopram Hydrobromide (Celexa) 40 mg PO HS [facility] Clonazepam (Klonopin) 1 mg PO TID [facility] Divalproex Sodium (Depakote Er) 1,000 mg PO HS [facility] Enoxaparin Sodium (Lovenox) 40 mg SQ DAILY [facility] Hydromorphone HCl (Dilaudid) 1 mg IV Q2HP PRN PRN Reason: Pain, severe Dextrose/Sodium Chloride (Dextrose 5%-1/2ns Iv Solution) 1,000 mls @ 75 mls/hr IV .[id number] [facility] Stop: 08/17/17 16:47 Last Admin: 08/17/17 09:43 Dose: Not Given Piperacillin Sod/Tazobactam (Sod 3.375 gm/ Sodium Chloride) 50 mls @ 100 mls/ hr IV Q6H [facility] Vancomycin HCl 2,000 mg/ (Sodium Chloride) 500 mls @ 250 mls/hr IV Q12H [facility] Last Admin: 08/17/17 10:28 Dose: 250 mls/hr Naloxone HCl (Narcan) 0.1 mg IV Q2MIN PRN PRN Reason: Opiate Reversal Nicotine (Nicoderm) 21 mg TOPICAL DAILY@1000 [facility] Last Admin: 08/17/17 09:43 Dose: Not Given Ondansetron HCl (Zofran) 4 mg IV Q4HP PRN PRN Reason: Nausea And Vomiting Prazosin HCl (Minipress) 1 mg PO HS [facility] Vancomycin HCl (Vancomycin Per Pharmacy) 1 order IV UD [facility] Medical - PN: A/P - Time Spent With Patient Total time spent is greater than 50% in coordination of care (as documented) at patient's floor/unit and/or counseling patient: - Narrative A/P Narrative: A/P Neck Cellutlitis Sepsis Periodontal Abscess Morbid obesity Depression Anxiety Chr pain PTSD Seizure disorder tobacco abuse. Plan sepsis improving, wbc up today likely from steroid use, procalcitonin neg continue iv abx x 1 more day, anticipate d/c to OMS clinic in AM Continue rest of home meds IV dilaudid prn for pain, IV toradol and tylenol / hydrocodone to contiue, (pt is not opiate naive) smoking cessation education and nicotine replacement dvt enoxaparin Full code Regular diet as tolerated.
[2017-08-17] MEDS: VANCOMYCIN 1,500 MG in 0.9 % SODIUM CHLORIDE 500 ML IV SCH (11:36)
[2017-08-17] MEDS: HYDROmorphone 2 MG/ML SYRINGE IV PRN ×4 (15:50→22:51)
[2017-08-17] MEDS ORDERED: PRAZOSIN 1 MG CAPSULE PO SCH (21:00)
[2017-08-17] MEDS ORDERED: CITALOPRAM 20 MG TABLET PO SCH (21:00)
[2017-08-17] MEDS ORDERED: DIVALPROEX SODIUM 250 MG TAB.ER.24H PO SCH (21:00)
[2017-08-17] MEDS ORDERED: ARIPIPRAZOLE 5 MG TABLET PO SCH (21:00)
[2017-08-18] MEDS: HYDROcodone/APAP 10/325MG TABLET PO PRN ×4 (00:20→12:55)
[2017-08-18] MEDS: HYDROmorphone 2 MG/ML SYRINGE IV PRN (04:45)
[2017-08-18 05:33] LABS: Basophils # (Auto) 0 K/mcL (0.0-0.3); Basophils % (Auto) 0.4 % (0.0-2.0); Eosinophils # (Auto) 0.1 K/mcL (0.0-0.7); Eosinophils % (Auto) 0.8 % (0.0-7.0); Lymphocytes # (Auto) 2.7 K/mcL (1.5-4.8); Lymphocytes % (Auto) 25.4 % (15.5-49.0); Mean Cell Volume 97.9 fL (80.0-100.0); Mean Corpuscular HGB Conc 34.5 g/dL (31.0-36.0); Mean Corpuscular Hemoglobin 33.8 pg (26.0-34.0); Monocytes # (Auto) 0.7 K/mcL (0.1-0.9); Monocytes % (Auto) 6.4 % (1.0-12.0); Platelet Count 188 K/mcL (140-440); Red Cell Distribution Width 14.2 % (11.5-14.5)
[2017-08-18] MEDS: PIPERACILLIN SODIUM/TAZOBACTAM 3.375 GM in 0.9 % SODIUM CHLORIDE 50 ML IV SCH (05:45)
[2017-08-18 06:12] LABS: ALT/SGPT 30 U/l (0-40); Albumin 3.6 gm/dL (3.2-5.2); Albumin/Globulin Ratio 1.2 (1.0-2.3); Alkaline Phosphatase 51 U/L (39-117); Bilirubin,Direct < 0.2 mg/dL (0.0-0.3); Blood Urea Nitrogen 12 mg/dl (6-20); Gamma Glutamyl Transpeptidase 37 U/L (5-36); Magnesium 2.2 mg/dL (1.6-2.5); Uric Acid 5.6 mg/dL (2.5-8.0)
[2017-08-18] MEDS: clonazePAM 1 MG TABLET PO SCH (08:56)
[2017-08-18] MEDS ORDERED: ENOXAPARIN 40 MG/0.4 ML SYRINGE SQ SCH (09:00)
[2017-08-18] MEDS: NICOTINE 21 MG PATCH TOPICAL SCH (10:06)
[2017-08-18] MEDS: VANCOMYCIN 2,000 MG in 0.9 % SODIUM CHLORIDE 500 ML IV SCH (11:34)
--- NOTE | 2017-08-18 11:53 | Discharge Summary ---
Medical - DS: Prov Patient information: Note initiated : 08/18/17 at 11:49 am Service Date, if different from initiated Date: [] Patient: Sri Bang 27 y/o F admitted on 08/15/17 for Neck Cellulitis, Sepsis, Periodontal Abscess. Chief Complaint: [] Date of admission: 08/15/17 23:49 Discharge date: 08/18/17 Primary care physician: Seda Mendez Admitting clinician: Mona Valderrama Discharging clinician: Mona Valderrama Medical - DS: Meds - Discharge Medications Prescriptions: Amoxicillin/Potassium Clav [Augmentin] 875 mg PO Q12H #28 tab Sulfamethoxazole/Trimethoprim [Bactrim Ds] 1 tab PO BID #28 tab Active and Home Medications: Home Medications Citalopram [Celexa] 40 mg PO HS 06/13/15 [History Confirmed 08/16/17 Last Taken 08/14/17 21:00] clonazePAM [Clonazepam] 1 mg PO TID 06/13/15 [History Confirmed 08/16/17 Last Taken 08/15/17 19:00] Aripiprazole [Abilify] 10 mg PO QHS 04/28/17 [History Confirmed 08/16/17 Last Taken 08/14/17 21:00] Divalproex Sodium [Depakote ER] 1,000 mg PO HS 04/28/17 [History Confirmed 08/16 Last Taken 08/14/17 21:00] Prazosin [Minipress] 1 mg PO HS 04/28/17 [History Confirmed 08/16/17 Last Taken 08/14/17 21:00] HYDROcodone/ACETAMINOPHEN [Hydrocodon-Acetaminophn 10-325] 2 each PO Q4-6HP PRN 08/05/17 [History Confirmed 08/16/17 Last Taken 08/15/17 19:00] Clindamycin HCl [Cleocin] 300 mg PO TID #30 cap 08/15/17 [Rx Confirmed 08/16/17 Last Taken 08/15/17 12:00] Ondansetron HCl [Zofran] 4 mg PO Q4-6H PRN 08/16/17 [History Confirmed 08/16/17 Last Taken 08/15/17 19:00] Medical - DS: Hosp Hospital course: Ms. Bang is a 27 year old Female presented to the ER today with complaints of pain in the left jaw associated with swelling. The patient has a chr bad (broken ) tooth in the left lower jaw which bothers her intermittently, this time around the pain started 2 days ago in the left lower jaw and progressively got worse. On the day of admission the patient had some swelling on the left side of the face and therefore presented to the ER, she was given oral antibiotics (clindamycin) . The swelling got worse and she came back in again in the evening. The patient notes that the pain is in the left lower jaw, throbbing, severe, constant, worse with eating and movement, better with pain meds, non radiating. Associated with swelling in the left side of the face. Subjective sensation of fever and chills and malaise. She admits to having some nausea but no vomiting. No other issues. In the ER her wbc was elevated, CT of the neck done showing. cellulitis of the left face and neck, likely odontogenic in origin. She was given cefoxitin and admitted to the hospital for further management. Dental abscess/ Neck cellutiltis: Treated with IV antibiotics, Zosyn and vancomycin with good response. Patient swelling and pain improved. It was not possible to have the abscess drained as no OMS surgery was available over the weekend. The patient today is doing well tolerating po diet well and her cellulitis is resolved. She will be discharged home with oral antibiotics x 2 weeks with follow up to [facility] dentistry in 1 day. Discharge diagnosis: neck cellutiltis, dental abscess. - Time Spent with Patient Total time spent providing and/or coordinating discharge services: Greater than 30 minutes Medical - DS: Exam - Constitutional Vitals: Vital Signs Temp Pulse Resp BP Pulse Ox 08/18/17 11:34 98.4 F 98 H 22 126/78 93 08/18/17 08:36 94 08/18/17 06:14 98.1 F 22 116/75 93 08/18/17 04:35 97.3 F 111 H 20 103/70 94 08/17/17 23:12 98.3 F 89 20 114/70 93 08/17/17 20:00 98.2 F 94 H 20 122/76 94 08/17/17 17:00 98.1 F 91 H 16 120/82 95 08/17/17 13:00 97.7 F 90 16 125/80 94 Intake and Output 08/17/17 08/18/17 08/18/17 21:59 05:59 13:59 Intake Total 500 / 500 990 / 990 290 / 290 Balance 500 / 500 990 / 990 290 / 290 Intake: IV 100 / 100 550 / 550 50 / 50 Zosyn 3.375 gm In Sodium 100 / 100 50 / 50 50 / 50 Chloride 0.9% 50 ml @ 100 mls/ hr IV Q6H [facility] Rx#:[id number] Vancomycin 2,000 mg In Sodium 500 / 500 Chloride 0.9% 500 ml @ 250 mls/ hr IV Q12H [facility] Rx#:[id number] Oral 400 / 400 440 / 440 240 / 240 Other: Meal Dinner Percent of Meal Consumed 100% # Voids 3 Weight 295 lb Additional comments: Constitutional; Afebrile, cooperative, alert, not in distress. Eyes- No icterus, , No periorbital swelling Ears- Ext ear normal, hearing normal to conversation. Neck- Midline trachea, supple, cellutlitis resolved, tooth appears broken but no drainage, erthema surrounding the tooth resolved. Respiratory system: Air Entry equal on both sides, No crackles or wheezing, no rhonchi. CVS- Rate rhythm regular, S1,S2 heard, no gallop, no rub. Abdomen- Soft nontender abdomen, no organomegaly, no tenderness, no guarding or rigidity, [employer]AD [employer]- AOOx3, moving all extremities, no gross focal deficit noted. Medical - DS: Data Procedures and tests throughout hospitalization: Neck CT IMPRESSION: 1. 7 mm abscess cavitation in the second left mandibular molar with a 9 mm dentigerous abscess about the root. The abscess extends through the lateral cortex of the mandibular ramus into the left buccal fascia which demonstrates moderate cellulitis extending the platysma. There are 4-5 reactive lymph nodes in the perimandibular region ranging up to 11 mm. 2. Small dentigerous abscesses adjacent to the left mandibular first molar and also the right mandibular second premolar Labs on day of discharge: Labs from last 24 hours 08/18/17 08/18/17 08/18/17 07:54 04:30 04:30 WBC 10.7 RBC 3.90 L Hgb 13.2 Hct 38.2 MCV 97.9 MCH 33.8 MCHC 34.5 RDW 14.2 Plt Count 188 MPV 9.2 Gran % 67.0 Lymph % (Auto) 25.4 Mason % (Auto) 6.4 Eos % (Auto) 0.8 Baso % (Auto) 0.4 Gran # 7.2 Lymph # (Auto) 2.7 Mason # (Auto) 0.7 Eos # (Auto) 0.1 Baso # (Auto) 0 Sodium 141 Potassium 4.7 Chloride 105 Carbon Dioxide 27 Anion Gap 9.0 BUN 12 Creatinine 0.6 GFR Calculation 125 Glucose 113 H Uric Acid 5.6 Calcium 8.4 L Phosphorus 3.9 Magnesium 2.2 Total Bilirubin < 0.2 Direct Bilirubin < 0.2 GGT 37 H AST 29 ALT 30 Alkaline Phosphatase 51 Lactate Dehydrogenase 121 Total Protein 6.7 Albumin 3.6 Globulin 3.1 Albumin/Globulin Ratio 1.2 Triglycerides 183 H Vancomycin Trough 12.0 Preliminary micro results at discharge 08/15/17 20:57 Blood Culture - Preliminary Blood 08/15/17 20:52 Blood Culture - Preliminary Blood Medical - DS: A/P - Patient/Caregiver Discharge Instructions Activity: increase activity as tolerated Diet: Regular Diet Additional Instructions: You have an appointment at the [facility] tomorrow 08/19/17 at 11:00 Bring your insurance cards with you. [facility] [phone] Follow up with PCP in 1 week Go to the ER if worsening swelling in the neck, fever chills shortness of breath or any other concerning symptom. Take antibiotics for 2 weeks. They have been sent to [facility] [place] pharmacy - Follow up Plan Follow up with: Seda Mendez MD [Primary Care Provider] - 08/19/17 8:30 am Disposition: Home, Self-Care Prognosis: Good Rehab Potential: Good I certify that the patient requires SNF services: No Overall status at discharge: patient is progressing back to baseline
== END 2017-08-18 13:10 | disposition home or self-care (01) | DRG 603 ==
LOC: ED 20:25 → ICU 23:45 → MEDSUR 08-17 11:22
PROVIDERS: ADMIT Internal Medicine; ATTEND Internal Medicine